=== PATIENT | female | born 1955 | race Caucasian/White ===

== ENCOUNTER 2016-12-21 18:06 | Emergency (ER) | payer OTHER ==
[~2016-12-21] VITALS: Ht 167.6 cm; Wt 63.6 kg
[2016-12-21 18:25] VITALS: BP 143/78; PULSE 96; RESP 18; O2SAT 98
--- NOTE | 2016-12-21 20:05 | DRSVH ---
PROCEDURE: X-RAY FINGERS, TWO VIEWS INDICATIONS: injury TECHNIQUE: AP hand, 2 views of the first finger(s) acquired. COMPARISON: None. FINDINGS: Bones: There is a comminuted, laterally angulated fracture through the mid first phalanx with approxi mate 7 mm fracture overlap. Soft tissues: No suspicious soft tissue calcifications. IMPRESSION: First mid metacarpal fracture with mild angulation. Dictated by: Leigh Barr M.D. on 12/21/2016 at 20:02 Approved by: Leigh Barr M.D. on 12/21/2016 at 20:03
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
[2016-12-21] MEDS ORDERED: Lidocaine 4% 50 mL Topical Solution TOPICAL PRN (22:00)
[2016-12-21] MEDS ORDERED: HYDROcodone-APAP 5-325 mg Tablet PO ONE (22:10)
[2016-12-21] MEDS ORDERED: _HYDROcodone/APAP 5-325 mg Tablet PO PRN (22:55)
[2016-12-21] MEDS ORDERED: CEPH-512 PO (22:58)
[2016-12-21] MEDS ORDERED: HYDR-4003 PO (22:58)
[2016-12-21 23:40] VITALS: BP 144/67; PULSE 78; O2SAT 96
[2016-12-25] MEDS ORDERED: ALPR0.5T8 PO (17:27)
[2016-12-25] MEDS ORDERED: PROP60CA8 PO (17:27)
[2016-12-25] MEDS ORDERED: CITA20TA11 PO (17:27)
[2016-12-25] MEDS ORDERED: IBUP200C PO (17:27)
== END 2016-12-21 23:30 | disposition home or self-care (01) ==
LOC: SED 18:06
DX: S62.511A Displaced fracture of proximal phalanx of right thumb, initial encounter for closed fracture (principal); S90.31XA Contusion of right foot, initial encounter; S80.211A Abrasion, right knee, initial encounter; M43.6 Torticollis; R11.0 Nausea; V28.5XXA Motorcycle passenger injured in noncollision transport accident in traffic accident, initial encounter; Y92.410 Unspecified street and highway as the place of occurrence of the external cause; Y93.89 Activity, other specified; Y99.8 Other external cause status; I10 Essential (primary) hypertension; M19.90 Unspecified osteoarthritis, unspecified site; Z91.012 Allergy to eggs

== ENCOUNTER 2016-12-26 08:28 | Day surgery (SDC) | payer OTHER ==
[~2016-12-26] VITALS: Ht 165.1 cm; Wt 65.0 kg
--- NOTE | 2016-12-26 06:51 | PCM.HPANE ---
Patient Data Surgeon Admitting Provider: Attending Provider:Morteza Bunch MD Primary Care Physician:Darrin Wadsworth MD Other Provider:Eric Harden Anesthesia Reason for Visit Right Knee Full Thickness Skin Abrasion Ht/WT & BMI Height (Feet): 5 Height (Inches): 5 Weight (Kilograms): 65.31 Body Mass Index 23.00, 23.00 Allergies Coded Allergies: atorvastatin (Unverified Allergy, Unknown, 12/25/16) egg (Unverified Allergy, Unknown, 12/25/16) lactase (Unverified Allergy, Unknown, 12/25/16) venlafaxine (Unverified Allergy, Unknown, 12/25/16) Past Anesthesia History Anesthesia History: Positive for:: Fam Anesthesia Reaction (her Mom got really "looney" and took her a long time to wake up.), Denies:: Abnormal Airway, Anesthesia Reactions, Difficult Intubation, Fam Malignant Hypertherm, Malignant Hyperthermia Diabetes History Hx Diabetes?: No MRSA MRSA: No Medications Hypertension Medication: Yes Home Meds Incl Beta Scott: No Active Scripts Hydrocodone-Acetaminophen 5-325 mg 1 Each Tablet1-2 Tablet PO Q4H PRN For Pain # 15 TABLET Prov:Peterson Blas MD 12/21/16 Cephalexin (Keflex)500 Mg [id number] Mg PO QID #20 CAPSULE Ref 0 Prov:Peterson Blas MD 12/21/16 Reported Medications Propranolol ER (Inderal LA)60 Mg [id number] Mg PO DAILY Ref 0 12/25/16 Ibuprofen 200 Mg [id number] Mg PO QID PRN For Pain Ref 0 12/25/16 Citalopram 20 Mg Tcrsvt46 Mg PO DAILY Ref 0 12/25/16 Alprazolam 0.5 Mg Tablet0.5 Mg PO TID PRN For Anxiety Ref 0 12/25/16 History HEENT History: Denies:: Abnormal Airway Difficult Intubation Dysphagia Hearing Problem Denture Type: None Hx of Heart Problems?: Yes Cardiovascular History: Positive for:: Hypertension Denies:: AICD Abdominal Aortic Aneurism Atrial Fibrillation Chest Pain Congestive Heart Failure Edema Heart Murmur Irregular Heartbeat Pacemaker Peripheral Vascular Valvular Heart Disease Respiratory History: Positive for:: Cough (since lisinopril has had a little bit of a cough.) Denies:: Asthma COPD Hemoptysis Oxygen Administration Pneumonia Tuberculosis Use of C-PAP Machine Hx Neurologic Problems?: No Neurological History: Denies:: CVA Dementia Headaches Multiple Sclerosis Parkinson's Disease Other GI Pertinent History: colon resection 2013 r/t diverticuli- Hx of Problems?: No Genitourinary History: Denies:: Kidney Stones Urinary Tract Infection Female Hx: Denies:: Currently (hysterectomy) Problems with Breasts? Skin History: Positive for:: History Skin Disorders? (right knee laceration) Hx Musculoskeletal Problems?: Yes Musculoskeletal History: Positive for:: Musculoskeletal Trauma (right knee laceration current admission problem) Denies:: Degenerative Joint Fibromyalgia Joint Replacement Myasthenia Gravis Osteoarthritis Psycho Social History: Positive for:: Anxiety Denies:: Hx Depression Hx Surgeries?: Yes (hysterectomy, colon resection) Other History: Denies:: Cancer Thyroid Disease History Blood Transfusions: Positive for:: Accept Blood Products? Denies:: Blood Transfusions Hx Diabetes: No Hx Alcohol Use: Yes (once a week)Hx Substance Use: Yes (cannabis oil edible ) Smoking Status: Unknown if Ever Smoker Have You Smoked inLast 12 mo: No Stop/Bang S-Snoring: Do You Snore Loudly: No T-Tired: feel tired, fatigued: No O-Obsered: Observed not breath: No P-Blood Pressure: treated: Yes B- Body Mass Index > 35 kg/m2: No A- Age over 50: Yes N- Neck Large Circumference: No G- Gender Male: No STUART Total Score: 2 Risk Assessment Category Category 1A: Patient has history of documented sleep apnea, and HAS NOT received any narcotic, sedative or anesthesia administration during this stay. Category 1B: Patient has history of documented sleep apnea, and HAS received any narcotic , sedative or anesthesia administration during this stay Category 2: Patient has SUSPECTED Obstructive Sleep Apnea, and HAS received any narcotic , sedative or anesthesia administration during this stay. Category 3: Patient has SUSPECTED Obstructive Sleep Apnea and HAS NOT received narcotic, sedative or anesthesia administration during this stay. Category 4: Outpatient in Procedural Areas with known sleep apnea or who screen positive for High Risk via the STOP/BANG questionnaire. Plan Impression Patient chart reviewed, patient interviewed and anesthestic plan with risks, benefits, and alternatives discussed, and informed consent obtained. Carmine Hamlin MD Dec 26, 2016 06:51
[~2016-12-26 08:28] MED LIST: ALPR0.5T8 PO; CEPH-512 PO; CITA20TA11 PO; CeFAZolin Inj 2 GM in Dextrose 5% 50 ML IV ONE; HYDR-4003 PO; IBUP200C PO; PROP60CA8 PO
[2016-12-26] MEDS ORDERED: MetoCLOpramide 5 mg/mL 2 mL Inj ONE (08:29)
[2016-12-26] MEDS ORDERED: Ondansetron 2 mg/mL 2 mL Inj ONE (08:29)
[2016-12-26] MEDS ORDERED: fentaNYL-PF 50 mCg/mL 2 mL Inj ONE (08:29)
[2016-12-26] MEDS ORDERED: Propofol 10,000 mCg/mL 20 mL Inj ONE (08:29)
[2016-12-26] MEDS ORDERED: EPHEDrine/NS 5 mg/mL 5 mL Syringe ONE (08:29)
[2016-12-26] MEDS: Lactated Ringer's 1,000 ML IV SCH ×3 (08:31→12:30)
[2016-12-26] MEDS ORDERED: CeFAZolin Inj 2 gm / 50mL D5W IV ONE (08:33)
[2016-12-26 09:02] VITALS: BP 141/75; PULSE 55; RESP 16; O2SAT 97
[2016-12-26] MEDS ORDERED: Lactated Ringer's 500 ML IV PRN (11:23)
[2016-12-26] MEDS ORDERED: Lactated Ringer's 1,000 ML IV SCH (11:23)
--- NOTE | 2016-12-26 11:23 | PCM.HPANE ---
Patient Data Surgeon Admitting Provider: Attending Provider:Morteza Bunch MD Primary Care Physician:Darrin Wadsworth MD Other Provider:Eric Harden Anesthesia Reason for Visit Right Knee Full Thickness Skin Abrasion Ht/WT & BMI Height (Feet): 5 Height (Inches): 5.00 Weight (Kilograms): 65.0 Body Mass Index 23.00 Allergies Coded Allergies: atorvastatin (Unverified Allergy, Unknown, 12/25/16) egg (Unverified Allergy, Unknown, 12/25/16) lactase (Unverified Allergy, Unknown, 12/25/16) venlafaxine (Unverified Allergy, Unknown, 12/25/16) Past Anesthesia History Anesthesia History: Positive for:: Fam Anesthesia Reaction (her Mom got really "looney" and took her a long time to wake up.), Denies:: Abnormal Airway, Anesthesia Reactions, Difficult Intubation, Fam Malignant Hypertherm, Malignant Hyperthermia Diabetes History Hx Diabetes?: No MRSA MRSA: No Medications Hypertension Medication: Yes Home Meds Incl Beta Scott: Yes (PROPRANOLOL 60MG) Date Beta Scott Taken: Dec 26, 2016 Time Beta Scott Taken: 729 Active Scripts Hydrocodone-Acetaminophen 5-325 mg 1 Each Tablet1-2 Tablet PO Q4H PRN For Pain # 15 TABLET Prov:Peterson Blas MD 12/21/16 Cephalexin (Keflex)500 Mg [id number] Mg PO QID #20 CAPSULE Ref 0 Prov:Peterson Blas MD 12/21/16 Reported Medications Propranolol ER (Inderal LA)60 Mg Vkrnbpl28 Mg PO DAILY Ref 0 12/25/16 Ibuprofen 200 Mg Nuizpdi107 Mg PO QID PRN For Pain Ref 0 12/25/16 Citalopram 20 Mg Tvedil97 Mg PO DAILY Ref 0 12/25/16 Alprazolam 0.5 Mg Tablet0.5 Mg PO TID PRN For Anxiety Ref 0 12/25/16 History History of ENT Problems?: No HEENT History: Denies:: Abnormal Airway Difficult Intubation Dysphagia Hearing Problem Denture Type: None Teeth Condition: Within Normal Limits Hx of Heart Problems?: Yes Cardiovascular History: Positive for:: Hypertension Denies:: AICD Abdominal Aortic Aneurism Atrial Fibrillation Chest Pain Congestive Heart Failure Edema Heart Murmur Irregular Heartbeat Pacemaker Peripheral Vascular Valvular Heart Disease Hx of Respiratory Problem?: No Respiratory History: Positive for:: Cough (since lisinopril has had a little bit of a cough.) Denies:: Asthma COPD Hemoptysis Oxygen Administration Pneumonia Tuberculosis Use of C-PAP Machine Hx Neurologic Problems?: No Neurological History: Denies:: CVA Dementia Headaches Multiple Sclerosis Parkinson's Disease Hx of GI Problems?: No Other GI Pertinent History: colon resection 2012 r/t diverticuli- Hx of Problems?: No Genitourinary History: Denies:: Kidney Stones Urinary Tract Infection Female Hx: Denies:: Currently Problems with Breasts? Skin History: Positive for:: History Skin Disorders? (right knee laceration) Hx Musculoskeletal Problems?: Yes Musculoskeletal History: Positive for:: Musculoskeletal Trauma (right knee laceration current admission problem) Denies:: Degenerative Joint Fibromyalgia Joint Replacement Myasthenia Gravis Osteoarthritis Psycho Social History: Positive for:: Anxiety Denies:: Hx Depression Hx Surgeries?: Yes (hysterectomy, colon resection) Other History: Denies:: Cancer Thyroid Disease History Blood Transfusions: Positive for:: Accept Blood Products? Denies:: Blood Transfusions Hx Diabetes: No Hx Alcohol Use: Yes (once a week)Hx Substance Use: Yes (cannabis oil edible ) Smoking Status: Unknown if Ever Smoker Have You Smoked inLast 12 mo: No Stop/Bang S-Snoring: Do You Snore Loudly: No T-Tired: feel tired, fatigued: No O-Obsered: Observed not breath: No P-Blood Pressure: treated: Yes B- Body Mass Index > 35 kg/m2: No A- Age over 50: Yes N- Neck Large Circumference: No G- Gender Male: No STUART Total Score: 2 STUART Risk Assessment: Low Risk, <3 Yes Risk Assessment Category Category 1A: Patient has history of documented sleep apnea, and HAS NOT received any narcotic, sedative or anesthesia administration during this stay. Category 1B: Patient has history of documented sleep apnea, and HAS received any narcotic , sedative or anesthesia administration during this stay Category 2: Patient has SUSPECTED Obstructive Sleep Apnea, and HAS received any narcotic , sedative or anesthesia administration during this stay. Category 3: Patient has SUSPECTED Obstructive Sleep Apnea and HAS NOT received narcotic, sedative or anesthesia administration during this stay. Category 4: Outpatient in Procedural Areas with known sleep apnea or who screen positive for High Risk via the STOP/BANG questionnaire. Exam Exam Vital Signs Vital Signs Date Time Temp Pulse Resp B/P Pulse Ox O2 Delivery O2 Flow Rate FiO2 12/26/16 09:02 36.8 55 16 141/75 97 Room Air General Appearance: Alert HEENT/AIRWAY: MP 2, Neck Movement (from, 3 FB) Lungs: Clear to Auscultation Heart: Regular Rate/Rhythm Meds/Labs/Diagnostics Admission Meds Current Medications Lactated Ringer's (Lr) 1,000 ml @ 80 mls/hr [id number] IV Last administered on t 08:31; Start 12/26/16 at 06:00 Plan Impression Patient chart reviewed, patient interviewed and anesthestic plan with risks, benefits, and alternatives discussed, and informed consent obtained. NPO per Anesth. Guidelines: Yes ASA Physical Status: ASA2 Mod Systemic Disease Anesthetic Plan: GA Bene/Risks/Altern/Consents: Yes HP Complete Prior to Induction: Yes Other Discussed GA. All questions were answered and she agrees to proceed. Maxwell Musa MD Dec 26, 2016 11:23
[2016-12-26] MEDS ORDERED: MetoCLOpramide 5 mg/mL 2 mL Inj IVPUSH PRN (11:25)
[2016-12-26] MEDS ORDERED: EPHEDrine Sulfate 50 mg/mL Inj IVPUSH PRN (11:25)
[2016-12-26] MEDS ORDERED: Phenylephrine 10,000 mCg/mL Inj IVPUSH PRN (11:25)
[2016-12-26] MEDS ORDERED: HYDROmorphone 1 mg/mL Inj IVPUSH PRN (11:25)
[2016-12-26] MEDS ORDERED: Dexamethasone 4 mg/mL Inj IVPUSH PRN (11:25)
[2016-12-26] MEDS ORDERED: fentaNYL-PF 50 mCg/mL 2 mL Inj IVPUSH PRN (11:25)
[2016-12-26] MEDS ORDERED: Ondansetron 2 mg/mL 2 mL Inj IVPUSH PRN (11:25)
[2016-12-26] MEDS ORDERED: Gentamicin 40 mg/mL 2 mL Inj IRRIGATION ONE (11:43)
[2016-12-26] MEDS ORDERED: Bupivacaine-MPF 0.5% 30 mL Inj INFILTRATE ONE (11:44)
[2016-12-26 12:11] VITALS: BP 149/79; PULSE 57; RESP 16; O2SAT 100
--- NOTE | 2016-12-26 12:14 | PCM.ANEP1 ---
Post Anesthesia PACU Phase 1 Assessment Vital Signs Vital Signs Date Time Temp Pulse Resp B/P Pulse Ox O2 Delivery O2 Flow Rate FiO2 12/26/16 09:02 36.8 55 16 141/75 97 Room Air Anesthetic Administered: GA Level of Alertness: Awake, talking MOREAU's with Equal Strength: Yes Pain: Yes Pain Scale Score: 8 Nausea or Vomiting: No CV Function & Hydration Stable: Yes Airway Device: Oxygen Delivery: Simple Mask Lungs: Clear to Auscultation Dermatome Level: Full Sensation PACU Phase 2 Assessment Complications: No Follow up Care: N/A Patient Instructions Provided: N/A Maxwell Musa MD Dec 26, 2016 12:14
[2016-12-26 12:15] VITALS: BP 145/78; PULSE 55; RESP 14; O2SAT 100
[2016-12-26] MEDS ORDERED: Acetaminophen IV 1,000 MG in IV Premix 1 EACH IV ONE (12:15)
[2016-12-26 12:28] VITALS: BP 136/84; PULSE 55; RESP 15; O2SAT 96
[2016-12-26 12:35] VITALS: BP 130/78; PULSE 56; RESP 12; O2SAT 95
[2016-12-26] MEDS ORDERED: oxyCODONE-Acetamin 5-325 mg Tablet PO PRN (12:45)
[2016-12-26 12:46] VITALS: BP 139/81; PULSE 59; RESP 16; O2SAT 93
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
[2017-01-02] MEDS ORDERED: OXYC1TAB24 PO (10:30)
[2017-01-02] MEDS ORDERED: doxycycline (10:30)
== END 2016-12-26 23:59 | disposition home or self-care (01) ==
LOC: SAS 08:28
PROVIDERS: ATTEND Orthopaedic Surgery
DX: S80.211A Abrasion, right knee, initial encounter (principal); V28.1XXA Motorcycle passenger injured in noncollision transport accident in nontraffic accident, initial encounter; Y93.55 Activity, bike riding; I10 Essential (primary) hypertension; E78.5 Hyperlipidemia, unspecified; F41.9 Anxiety disorder, unspecified
CPT/HCPCS: 11042; 87070; 87075; 87205; J0131; J0690; J1580; J1885; J2405; J2765; J3010; J7120

== ENCOUNTER → 2017-01-02 | Day surgery (SDC) | payer OTHER ==
[2017-01-02] VITALS (11 sets, daily range): BP systolic 102–134; BP diastolic 10–62; PULSE 57–66; RESP 10–16; O2SAT 94–99
[~2017-01-02] VITALS: Ht 165.1 cm; Wt 65.6 kg
[~2017-01-02] MED LIST changes: +Bupivacaine-MPF 0.5% 30 mL Inj INFILTRATE ONE; +CeFAZolin 2 Gm/50 mL D5W IV Premix IV ONE; -CeFAZolin Inj 2 GM in Dextrose 5% 50 ML IV ONE; +Dexamethasone 4 mg/mL Inj IVPUSH PRN; +EPHEDrine Sulfate 50 mg/mL Inj IVPUSH PRN; +EPHEDrine/NS 5 mg/mL 5 mL Syringe ONE; +Lactated Ringer's 1,000 ML IV SCH; +Lactated Ringer's 500 ML IV PRN; +MetoCLOpramide 5 mg/mL 2 mL Inj IVPUSH PRN; +MetoCLOpramide 5 mg/mL 2 mL Inj ONE; +OXYC1TAB24 PO; +Ondansetron 2 mg/mL 2 mL Inj IVPUSH PRN; +Ondansetron 2 mg/mL 2 mL Inj ONE; +Phenylephrine 10,000 mCg/mL Inj IVPUSH PRN; +Propofol 10,000 mCg/mL 20 mL Inj ONE; +doxycycline; +fentaNYL-PF 50 mCg/mL 2 mL Inj IVPUSH PRN; +fentaNYL-PF 50 mCg/mL 2 mL Inj ONE; +oxyCODONE-Acetamin 5-325 mg Tablet PO PRN
[2017-01-02] MEDS: Lactated Ringer's 1,000 ML IV SCH ×2 (10:34→13:03)
--- NOTE | 2017-01-02 13:28 | PCM.HPANE ---
Patient Data Surgeon Admitting Provider: Attending Provider:Morteza Bunch MD Primary Care Physician:Darrin Wadsworth MD Other Provider:Eric Harden Anesthesia Reason for Visit Right 1ST Metacarpal Shaft Fracture Ht/WT & BMI Height (Feet): 5 Height (Inches): 5.00 Weight (Kilograms): 65.600 Body Mass Index 24.00 Allergies Coded Allergies: egg (Verified Allergy, Severe, 12/29/16) lactase (Verified Allergy, Severe, 12/29/16) atorvastatin (Verified Allergy, Unknown, 12/29/16) venlafaxine (Verified Allergy, Unknown, 12/29/16) Past Anesthesia History Anesthesia History: Positive for:: Fam Anesthesia Reaction (her Mom got really "looney" and took her a long time to wake up.), Denies:: Abnormal Airway, Anesthesia Reactions, Difficult Intubation, Fam Malignant Hypertherm, Malignant Hyperthermia Diabetes History Hx Diabetes?: No MRSA MRSA: No Medications Blood Thinner: Aspirin Hypertension Medication: Yes (Inderal) Home Meds Incl Beta Scott: Yes Date Beta Scott Taken: Jan 02, 2017 Time Beta Scott Taken: 0830 Active Scripts Cephalexin (Keflex)500 Mg [id number] Mg PO QID #20 CAPSULE Ref 0 Prov:Peterson Blas MD 12/21/16 Reported Medications [doxycycline] No Conflict Check 01/02/17 oxyCODONE-Acetaminophen 5-325 mg 1 Each Tablet1-2 Tab PO Q6H PRN For Pain Ref 0 01/02/17 Propranolol ER (Inderal LA)60 Mg [id number] Mg PO DAILY Ref 0 12/25/16 Ibuprofen 200 Mg [id number] Mg PO QID PRN For Pain Ref 0 12/25/16 Citalopram 20 Mg [id number] Mg PO DAILY Ref 0 12/25/16 Alprazolam 0.5 Mg Tablet0.5 Mg PO TID PRN For Anxiety Ref 0 12/25/16 Discontinued Scripts Hydrocodone-Acetaminophen 5-325 mg 1 Each Tablet1-2 Tablet PO Q4H PRN For Pain # 15 TABLET Prov:Peterson Blas MD 12/21/16 History History of ENT Problems?: No HEENT History: Denies:: Abnormal Airway Cataracts Difficult Intubation Dysphagia Glaucoma Hearing Problem Denture Type: None Teeth Condition: Within Normal Limits Hx of Heart Problems?: Yes Cardiovascular History: Positive for:: Hypertension Denies:: AICD Abdominal Aortic Aneurism Atrial Fibrillation Cardiac Surgery Chest Pain Congestive Heart Failure Coronary Artery Disease Edema Heart Murmur Irregular Heartbeat Pacemaker Rheumatic Fever Thrombophlebitis Valvular Heart Disease Hx of Respiratory Problem?: No Respiratory History: Denies:: Asthma COPD Chest Surgery Cough Dyspnea Emphysema Hemoptysis Oxygen Administration Pneumonia Pulmonary Embolism Tuberculosis Use of C-PAP Machine Use of Inhalers / NEBS Hx Neurologic Problems?: No Neurological History: Denies:: CVA Dementia Headaches Multiple Sclerosis Parkinson's Disease Hx of GI Problems?: No Hx of Problems?: No Genitourinary History: Denies:: Kidney Stones Urinary Tract Infection Female Hx: Denies:: Currently Problems with Breasts? Skin History: Positive for:: History Skin Disorders? (right knee laceration) Denies:: Pressure Ulcers Hx Musculoskeletal Problems?: Yes Musculoskeletal History: Positive for:: Musculoskeletal Trauma (right thumb ) Osteoarthritis Denies:: Back Injury Degenerative Joint Fibromyalgia Joint Replacement Myasthenia Gravis Rheumatoid Arthritis Systemic Lupus Psycho Social History: Positive for:: Anxiety (citalapram) Denies:: Hx Depression Hx Surgeries?: Yes (hysterectomy, colon resection) Other History: Positive for:: Hospitalization ( December 2012 colon resection) Denies:: Cancer Endocrine Disease Thyroid Disease History Blood Transfusions: Positive for:: Accept Blood Products? Denies:: Blood Transfusions Hx Diabetes: No Hx Alcohol Use: Yes (once a week)Hx Substance Use: Yes (cannabis oil edible ) Smoking Status: Unknown if Ever Smoker Have You Smoked inLast 12 mo: No Stop/Bang S-Snoring: Do You Snore Loudly: No T-Tired: feel tired, fatigued: No O-Obsered: Observed not breath: No P-Blood Pressure: treated: Yes B- Body Mass Index > 35 kg/m2: No A- Age over 50: Yes N- Neck Large Circumference: No G- Gender Male: No STUART Total Score: 2 STUART Risk Assessment: Low Risk, <3 Yes Risk Assessment Category Category 1A: Patient has history of documented sleep apnea, and HAS NOT received any narcotic, sedative or anesthesia administration during this stay. Category 1B: Patient has history of documented sleep apnea, and HAS received any narcotic , sedative or anesthesia administration during this stay Category 2: Patient has SUSPECTED Obstructive Sleep Apnea, and HAS received any narcotic , sedative or anesthesia administration during this stay. Category 3: Patient has SUSPECTED Obstructive Sleep Apnea and HAS NOT received narcotic, sedative or anesthesia administration during this stay. Category 4: Outpatient in Procedural Areas with known sleep apnea or who screen positive for High Risk via the STOP/BANG questionnaire. Exam Exam Vital Signs Vital Signs Date Time Temp Pulse Resp B/P Pulse Ox O2 Delivery O2 Flow Rate FiO2 01/02/17 10:52 36.3 58 14 134/60 96 Room Air General Appearance: Alert HEENT/AIRWAY: MP 1, Neck Movement (from, 3 fb) Lungs: Clear to Auscultation Heart: Regular Rate/Rhythm Meds/Labs/Diagnostics Admission Meds Current Medications Lactated Ringer's (Lr) 1,000 ml @ 120 mls/hr Q8H20M IV Last administered on t 10:34; Start 01/02/17 at 05:00; Stop 01/02/17 at 13:19 Plan Impression Patient chart reviewed, patient interviewed and anesthestic plan with risks, benefits, and alternatives discussed, and informed consent obtained. NPO per Anesth. Guidelines: Yes ASA Physical Status: ASA2 Mod Systemic Disease Anesthetic Plan: GA Bene/Risks/Altern/Consents: Yes HP Complete Prior to Induction: Yes Maxwell Musa MD Jan 02, 2017 11:57
[2017-01-02] MEDS: HYDROmorphone 1 mg/mL Inj IVPUSH PRN ×2 (16:20→16:30)
--- NOTE | 2017-01-02 16:28 | PCM.ANEP1 ---
Post Anesthesia PACU Phase 1 Assessment Vital Signs Vital Signs Date Time Temp Pulse Resp B/P Pulse Ox O2 Delivery O2 Flow Rate FiO2 01/02/17 16:25 36.6 60 10 102/10 96 Room Air 01/02/17 16:20 61 11 102/46 96 Room Air 01/02/17 16:15 60 12 107/55 96 Room Air 01/02/17 16:10 57 13 113/55 95 Room Air 01/02/17 16:05 61 16 114/53 95 Room Air 01/02/17 16:00 58 15 109/46 99 Simple Mask 8 01/02/17 15:55 36.6 62 16 112/49 99 Simple Mask 8 01/02/17 10:52 36.3 58 14 134/60 96 Room Air Anesthetic Administered: GA Level of Alertness: Awake, talking MOREAU's with Equal Strength: Yes Pain: No Nausea or Vomiting: No CV Function & Hydration Stable: Yes Airway Device: Lungs: Clear to Auscultation Dermatome Level: Full Sensation PACU Phase 2 Assessment Complications: No Follow up Care: N/A Patient Instructions Provided: N/A Maxwell Musa MD Jan 02, 2017 16:28
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
--- NOTE | 2017-01-03 05:39 | DRSVH ---
PROCEDURE: X-RAY FINGERS, TWO VIEWS RIGHT INDICATIONS: FRACTURE REPAIR TECHNIQUE: AP hand, 2 views of the first finger(s) acquired. COMPARISON: [facility], CR, XR FINGER(S) RT 2VW, 12/21/2016, 19:16. [facility], CR, XR FINGER(S) RT 2VW, 12/25/2016, 14:25. FINDINGS: Bones: Improved alignment status post ORIF of mid shaft first metacarpal fracture. Fixation plate an d screws have been placed which are in expected positions. Soft tissues: No suspicious soft tissue calcifications. IMPRESSION: Improved alignment status post ORIF of first metacarpal midshaft fracture. Dictated by: Rupesh Forrest RR Interpreted: Ruben Laura MD on 01/02/2017 at 16:40 Approved by: Ruben Laura M.D. on 01/03/2017 at 4:37
== END | disposition home or self-care (01) ==
LOC: SAS 10:09
PROVIDERS: ATTEND Orthopaedic Surgery
PROC: 0PSP04Z Reposition Right Metacarpal with Internal Fixation Device, Open Approach (ICD-10-PCS; principal; 2017-01-02 12:00)
DX: S62.241A Displaced fracture of shaft of first metacarpal bone, right hand, initial encounter for closed fracture (principal); S80.211D Abrasion, right knee, subsequent encounter; V28.5XXA Motorcycle passenger injured in noncollision transport accident in traffic accident, initial encounter; I10 Essential (primary) hypertension; F41.9 Anxiety disorder, unspecified; E78.5 Hyperlipidemia, unspecified
CPT/HCPCS: 26615; 73140; C1713; J0690; J1170; J2250; J2405; J2765; J3010; J7120